=== PATIENT | female | born 1980 | race Two or more races ===

== ENCOUNTER → 2022-01-04 | Emergency (ER) | payer BC, OTHER ==
[~2022-01-04] VITALS: Ht 180.3 cm; Wt 74.8 kg
[~2022-01-04] MED LIST: KETOROLAC TROMETH 60MG/2ML VIAL IM ONE
[2022-01-04 20:08] VITALS: BP 125/82
== END | disposition home or self-care (01) ==
LOC: ER 18:59 → EDBD 18:59
DX: S83.004A Unspecified dislocation of right patella, initial encounter (principal); W19.XXXA Unspecified fall, initial encounter; Y93.89 Activity, other specified; Y92.9 Unspecified place or not applicable; Y99.8 Other external cause status
CPT/HCPCS: 29505; 73562; 96372; 99283; J1885